=== PATIENT | female | born 1955 | race Caucasian/White ===

== ENCOUNTER 2016-09-11 08:57 | Day surgery (SDC) | payer BC ==
[2016-09-11] MEDS ORDERED: PROPOFOL 10 MG/ML VIAL IV ONE (14:00)
[2016-09-11] MEDS ORDERED: LIDOCAINE 2% MDV (20MG/ML) 20ML VIAL IV ONE (14:00)
[2016-09-11] MEDS ORDERED: MIDAZOLAM HCL 2MG/2ML VIAL IV ONE (14:00)
--- NOTE | 2016-09-13 11:54 | Operative Note ---
DATE OF SURGERY: 09/11/2016 OPERATION: Surveillance COLONOSCOPY. PREOPERATIVE DIAGNOSIS: Personal history of polyps. POSTOPERATIVE DIAGNOSIS: Normal exam. PREPARATION QUALITY: Good. ESTIMATED BLOOD LOSS: None. SPECIMENS: None. COMPLICATIONS: None apparent. PROCEDURE: After informed consent was obtained from the patient, she was placed in the left lateral decubitus position in the endoscopy suite, sedated and monitored by the department of anesthesia. Digital rectal exam was unremarkable. A well-lubricated [id number] colonoscope was inserted into the rectum and advanced to the cecum. The ileocecal valve, appendiceal orifice, cecal cap, ascending colon, transverse colon, descending colon, sigmoid colon, and rectum were carefully inspected in retrograde fashion. No polyps, mass lesions, inflammation, or diverticula were seen. J-turn views of the anorectum and forward views of the rectum were unremarkable. The endoscope was straightened, the rectal ampulla deflated, and the endoscope was removed. RECOMMENDATIONS: I would suggest the patient resume her medications and diet. She should undergo repeat exam in 5 years. As always, thank you for allowing me to participate in the healthcare of your patients. CC: CRYSTAL Cho
== END 2016-09-11 10:17 | disposition home or self-care (01) ==
LOC: HOP 08:57
PROVIDERS: ATTEND Internal Medicine Gastroenterology
DX: Z86.010 Personal history of colon polyps (principal); E03.9 Hypothyroidism, unspecified

== ENCOUNTER 2018-09-27 08:40 | Day surgery (SDC) | payer BC ==
[~2018-09-27 08:40] MED LIST: ACETAMINOPHEN 1,000 MG/100 ML BTL IVPB ONE
[2018-09-27] MEDS ORDERED: BUPIVACAINE 0.25% W/EPI MPF 30ML VIAL SQ ONE (10:28)
--- NOTE | 2018-09-28 08:40 | Operative Note ---
DATE OF SURGERY: 09/27/2018 SURGEON: Todd Bryant DO PREOPERATIVE DIAGNOSIS: Right thigh mass. POSTOPERATIVE DIAGNOSIS: Right thigh mass. OPERATION: Wide excision of right thigh mass. This measured 2 x 2 cm into the subcu. INDICATION: The patient is a 63-year-old female who has a small mass on her right thigh. We did discuss excision. Risks, benefits, and alternatives were discussed. Risks include bleeding, infection, recurrence. She understood this fully. Thereafter, consent was signed and questions answered. PROCEDURE: The patient was taken to the operating room and placed in a supine position. Local anesthesia was applied around the mass. This was excised down to the subcu. This was then passed off the field. The wound was closed with 4-0 Vicryl. This measures 2 x 2 cm into the subcu. Final pathology pending. CC: FRANCIS Dias
== END 2018-09-27 11:50 | disposition home or self-care (01) ==
LOC: SUR 08:40
PROVIDERS: ATTEND Surgery
DX: R22.41 Localized swelling, mass and lump, right lower limb (principal)